=== PATIENT | male | born 1975 | race Caucasian/White ===

== ENCOUNTER 2016-11-28 03:40 | Emergency (ER) | payer OTHER ==
[~2016-11-28] VITALS: Ht 175.3 cm; Wt 88.6 kg
[2016-11-28] MEDS ORDERED: PEN-VEE K,VEET500 MG PO (04:03)
[2016-11-28] MEDS ORDERED: PERCOCET 5/31 TABLET PO (04:03)
[2016-11-28 04:30] VITALS: BP 169/116
== END 2016-11-28 04:31 | disposition home or self-care (01) ==
LOC: EME 03:40
DX: K02.9 Dental caries, unspecified (principal)
CPT/HCPCS: 99281; 99283

== ENCOUNTER 2018-03-08 05:45 | Emergency (ER) | payer OTHER ==
[~2018-03-08] VITALS: Ht 165.1 cm; Wt 89.0 kg
[~2018-03-08 05:45] MED LIST: PEN-VEE K,VEET500 MG PO; PERCOCET 5/31 TABLET PO
[2018-03-08] MEDS ORDERED: ROBITUSSIN NIG237 ML PO (06:52)
[2018-03-08 07:02] VITALS: BP 150/98
== END 2018-03-08 07:03 | disposition home or self-care (01) ==
LOC: EME 05:45
DX: B34.9 Viral infection, unspecified (principal); R05 Cough
CPT/HCPCS: 71046; 99281; 99283